=== PATIENT | female | born 1980 | race African-American/Black ===

== ENCOUNTER 2021-06-24 09:43 | Emergency (ER) | payer MEDICAID ==
[~2021-06-24] VITALS: Ht 177.8 cm; Wt 65.0 kg
[2021-06-24 09:59] VITALS: BP 102/72
== END 2021-06-24 10:47 | disposition left against medical advice (07) ==
LOC: ER 09:43
DX: M25.562 Pain in left knee (principal); F32.9 Major depressive disorder, single episode, unspecified; F20.9 Schizophrenia, unspecified; W03.XXXA Other fall on same level due to collision with another person, initial encounter; Y93.89 Activity, other specified; Y92.9 Unspecified place or not applicable
CPT/HCPCS: 73560; 99283

== ENCOUNTER 2024-08-26 11:13 | Emergency (ER) | payer MEDICAID ==
[~2024-08-26] VITALS: Ht 172.7 cm; Wt 80.0 kg
[2024-08-26 11:14] VITALS: BP 140/70; PULSE 78; RESP 19; O2SAT 99
[2024-08-26] MEDS ORDERED: ACETAMINOPHEN 325MG TABLET PO ONE (12:30)
== END 2024-08-26 15:22 | disposition home or self-care (01) ==
LOC: ER 11:59
DX: Z00.00 Encounter for general adult medical examination without abnormal findings (principal); F20.9 Schizophrenia, unspecified; F41.0 Panic disorder [episodic paroxysmal anxiety]
CPT/HCPCS: 99283